=== PATIENT | female | born 1975 | race Hispanic/Latino ===

== ENCOUNTER 2021-07-16 14:52 | Emergency (ER) | payer OTHER ==
[~2021-07-16] VITALS: Ht 165.1 cm; Wt 99.2 kg
[~2021-07-16 14:52] MED LIST: PRENATABS FA T1 EACH PO
== END 2021-07-16 16:30 | disposition home or self-care (01) ==
LOC: ED 14:52
DX: S63.501A Unspecified sprain of right wrist, initial encounter (principal); M70.88 Other soft tissue disorders related to use, overuse and pressure other site; X58.XXXA Exposure to other specified factors, initial encounter
CPT/HCPCS: 73110; 99283-25; A9270